=== PATIENT | female | born 1955 | race Caucasian/White ===

== ENCOUNTER → 2017-04-23 | Day surgery (SDC) | payer MEDICAID ==
[~2017-04-23] VITALS: Ht 167.6 cm; Wt 95.3 kg
[~2017-04-23] MED LIST: ACETAMINOPHEN 325MG TABLET PO PRN; ASPI-1159 PO; CARV6.2548 PO; ESCI20TA36 PO; FENTANYL CITRATE/PF 50MCG/ML 2ML VIAL ONE; FOLI-43 PO; FURO40TA5 PO; GABA-531 PO; HEPARIN SODIUM 1,000 UNIT/1ML VIAL IV ONE; IODIXANOL 320MG/ML 100 ML BOTTLE IV ONE; LIDOCAINE HCL 1% 20ML VIAL (Pyxis) INJ ONE; LOSA25TA12 PO; MIDAZOLAM HCL 2 MG/2 ML VIAL ONE; MORPHINE SULFATE 4 MG/ML CPJ (NOT FOR IM USE) IV PRN; NIAC500T2 PO; ONDANSETRON HCL 4MG/2ML VIAL IV PRN; SIMV20TA6 PO; SPIR25TA4 PO
[2017-04-23 09:31] LABS: HEMATOCRIT 38.9 % (36.0-48.0); HEMOGLOBIN 13.5 g/dL (12.0-16.0); MEAN CORPUSCULAR HEMOGLOBIN 29.5 pg (28.0-32.0); MEAN CORPUSCULAR VOLUME 85.2 fL (81.0-99.0); PLATELET 301 x1000/uL (130-400); RED BLOOD CELL COUNT 4.57 mill/uL (4.2-5.4); RED CELL DISTRIBUTION WIDTH 13.7 % (11.6-14.6)
[2017-04-23 09:40] LABS: PARTIAL THROMBOPLASTIN TIME 25.4 sec (24.0-34.0); PROTHROMBIN TIME 10.3 sec
[2017-04-23 09:42] LABS: CARBON DIOXIDE 28 mEq/L (21-32); CHLORIDE 104 mEq/L (98-107)
== END | disposition home or self-care (01) ==
LOC: CCL 07:18
PROVIDERS: ATTEND Internal Medicine Cardiovascular Disease
DX: I42.9 Cardiomyopathy, unspecified (principal); M19.90 Unspecified osteoarthritis, unspecified site; I50.9 Heart failure, unspecified; B19.10 Unspecified viral hepatitis B without hepatic coma; E78.5 Hyperlipidemia, unspecified
CPT/HCPCS: 36415; 80048; 85027; 85610; 85730; 93458; 99152; 99153; C1769; C1893; J1644; J2250; J3010; J3490; Q9967